=== PATIENT | female | born 1975 | race Caucasian/White ===

== ENCOUNTER 2021-12-15 06:18 | Observation (INO) ==
[2021-12-12 12:03] LABS: Basophils % 0.4 % (0.0-0.8); Eosinophils # 0.2 10*3/uL (0.0-0.87); Eosinophils % 2.1 % (0.00-10.9); Hematocrit 40.9 VOL% (35.7-47.0); Immature Granulocytes % 0.3 %; Immature Granulocytes Absolute 0.02 #; Lymphocytes # 3.2 10*3/uL (1.4-4.0); Lymphocytes % 44.8 % (21.3-54.2); Mean Corpuscular HGB Conc 31.8 GM/DL (32-36); Mean Corpuscular Volume 90.1 FL (87-102); Mean Platelet Volume 9.6 FL (9.6-12.0); Monocytes % 7.7 % (1.7-12.7); Neutrophils % 44.7 % (38.7-73.9); Platelet Count 270 T/CUMM (130-400); Red Blood Count 4.54 MC/CUMM (3.8-5.5); Red Cell Distribution Width 13.5 % (9.3-17.3); White Blood Count 7.1 T/CUMM (4-12)
[2021-12-12 12:40] LABS: Calcium 9.8 MG/DL (8.5-10.1); Osmolality,Calculated 272.8 MOS/KG (273-304); Potassium 4.3 MMOL/L (3.5-5.1)
[~2021-12-15 06:18] MED LIST: cefTRIAXone 1,000 MG in SODIUM CHLORIDE 0.9% 100 ML IV ONE
[2021-12-15] MEDS: LACTATED RINGERS 1,000 ML IV SCH ×2 (06:44→09:13)
[2021-12-15] MEDS ORDERED: fentaNYL 100 MCG/2 ML VIAL ONE (07:05)
[2021-12-15] MEDS ORDERED: DEXAMETHASONE 4 MG/1 ML VIAL ONE (07:18)
[2021-12-15] MEDS ORDERED: ONDANSETRON 4 MG/2 ML VIAL ONE (07:18)
[2021-12-15] MEDS ORDERED: propofoL 200 MG/20 ML VIAL IV ONE (07:18)
[2021-12-15] MEDS ORDERED: LIDOCAINE 2% 5 ML VIAL ONE (07:18)
[2021-12-15] MEDS ORDERED: SEVOFLURANE 1 UNIT/15 MINUTE INH ONE (08:16)
[2021-12-15] MEDS ORDERED: PROMETHAZINE INJ 25 MG in SODIUM CHLORIDE 0.9% 50 ML IV PRN (08:25)
[2021-12-15] MEDS ORDERED: PROMETHAZINE 25 MG/1 ML VIAL ONE (08:26)
[2021-12-15] MEDS ORDERED: HYDROmorphone 2 MG/1 ML VIAL ONE (08:38)
[2021-12-15] MEDS: HYDROmorphone 2 MG/1 ML VIAL IV PRN ×6 (08:39→23:49)
[2021-12-15] MEDS ORDERED: PROMETHAZINE 25 MG/1 ML VIAL IM PRN (10:23)
[2021-12-15] MEDS ORDERED: ONDANSETRON 4 MG/2 ML VIAL IV ONE (10:23)
[2021-12-15] MEDS ORDERED: diphenhydrAMINE 50 MG/1 ML VIAL IV PRN (10:23)
[2021-12-15] MEDS ORDERED: SIMETHICONE CHEW 125 MG TABLET PO PRN (10:23)
[2021-12-15] MEDS ORDERED: oxyCODONE/ACETAMINOPHEN 5-325 MG TABLET PO ONE (10:23)
[2021-12-15] MEDS ORDERED: traMADol 50 MG TABLET PO PRN (10:27)
[2021-12-15] MEDS ORDERED: cefTRIAXone 1,000 MG in SODIUM CHLORIDE 0.9% 100 ML IV SCH (10:30)
[2021-12-15] MEDS: SODIUM CHLORIDE 0.9% 1,000 ML IV SCH ×2 (11:05→19:38)
[2021-12-15] MEDS: ACETAMINOPHEN 325 MG TABLET PO SCH ×3 (11:34→22:35)
[2021-12-15] MEDS ORDERED: METOCLOPRAMIDE 10 MG/2 ML VIAL IV ONE (11:43)
[2021-12-15 11:46] LABS: Basophils % 0.3 % (0.0-0.8); Eosinophils % 0.3 % (0.00-10.9); Hematocrit 41.8 VOL% (35.7-47.0); Hemoglobin 13.5 GM/DL (12.0-16.0); Immature Granulocytes % 0.8 %; Immature Granulocytes Absolute 0.06 #; Lymphocytes # 1.1 10*3/uL (1.4-4.0); Lymphocytes % 14.5 % (21.3-54.2); Mean Corpuscular HGB Conc 32.3 GM/DL (32-36); Mean Corpuscular Volume 90.1 FL (87-102); Mean Platelet Volume 8.9 FL (9.6-12.0); Monocytes % 1.6 % (1.7-12.7); Neutrophils % 82.5 % (38.7-73.9); Platelet Count 259 T/CUMM (130-400); Red Blood Count 4.64 MC/CUMM (3.8-5.5); Red Cell Distribution Width 13.4 % (9.3-17.3); White Blood Count 7.7 T/CUMM (4-12)
[2021-12-15 11:55] LABS: Calcium 8.7 MG/DL (8.5-10.1); Osmolality,Calculated 273.8 MOS/KG (273-304); Potassium 3.6 MMOL/L (3.5-5.1)
[2021-12-15] MEDS ORDERED: INFLUENZA VIRUS VACCINE 0.5 ML SYRINGE IM ONE (13:43)
[2021-12-15] MEDS: ONDANSETRON 4 MG/2 ML VIAL IV PRN ×2 (15:20→19:38)
[2021-12-15] MEDS: DOCUSATE SODIUM 100 MG CAPSULE PO SCH (20:40)
[2021-12-15] MEDS: FAMOTIDINE 20 MG TABLET PO SCH (20:41)
[2021-12-15] MEDS ORDERED: ATORVASTATIN 10 MG TABLET PO SCH (21:00)
[2021-12-15] MEDS ORDERED: ZALEPLON 5 MG CAPSULE PO SCH (21:00)
[2021-12-15] MEDS ORDERED: ESTRADIOL 1 MG TABLET PO SCH (21:00)
[2021-12-15] MEDS ORDERED: amLODIPine 5 MG TABLET PO SCH (21:00)
[2021-12-15] MEDS: OXYBUTYNIN 5 MG TABLET PO PRN (22:35)
[2021-12-16] MEDS: SODIUM CHLORIDE 0.9% 1,000 ML IV SCH ×2 (02:26→03:49)
[2021-12-16] MEDS: ACETAMINOPHEN 325 MG TABLET PO SCH (03:48)
[2021-12-16 04:07] LABS: Basophils % 0.1 % (0.0-0.8); Hematocrit 36.8 VOL% (35.7-47.0); Hemoglobin 11.8 GM/DL (12.0-16.0); Immature Granulocytes % 0.5 %; Immature Granulocytes Absolute 0.08 #; Lymphocytes # 1.7 10*3/uL (1.4-4.0); Lymphocytes % 10.9 % (21.3-54.2); Mean Corpuscular HGB Conc 32.1 GM/DL (32-36); Mean Corpuscular Volume 90.9 FL (87-102); Mean Platelet Volume 9.1 FL (9.6-12.0); Monocytes % 4.8 % (1.7-12.7); Neutrophils % 83.7 % (38.7-73.9); Platelet Count 279 T/CUMM (130-400); Red Blood Count 4.05 MC/CUMM (3.8-5.5); Red Cell Distribution Width 13.7 % (9.3-17.3); White Blood Count 15.2 T/CUMM (4-12)
[2021-12-16 04:28] LABS: Calcium 8.1 MG/DL (8.5-10.1); Osmolality,Calculated 279.3 MOS/KG (273-304); Potassium 3.7 MMOL/L (3.5-5.1)
[2021-12-16 08:22] VITALS: BP 142/83
[2021-12-16] MEDS: FAMOTIDINE 20 MG TABLET PO SCH (08:55)
[2021-12-16] MEDS: DOCUSATE SODIUM 100 MG CAPSULE PO SCH (08:55)
[2021-12-16] MEDS: OXYBUTYNIN 5 MG TABLET PO PRN (08:56)
[2021-12-16] MEDS ORDERED: TAMSULOSIN 0.4 MG CAPSULE PO SCH (09:00)
[2021-12-16] MEDS ORDERED: LOSARTAN/HCTZ 50-12.5 MG TABLET PO SCH (09:00)
[2021-12-16] MEDS: HYDROmorphone 2 MG/1 ML VIAL IV PRN (10:08)
== END 2021-12-16 11:33 | disposition home or self-care (01) ==
LOC: N.OR 06:18 → N.3E 06:18
PROVIDERS: ADMIT Surgery; ATTEND Surgery